=== PATIENT | male | born 1960 | race American Indian/Alaskan Native ===

== ENCOUNTER 2019-08-29 04:07 | Emergency (ER) | payer SELFPAY ==
[2019-08-29 04:17] VITALS: BP 146/90
[2019-08-29] MEDS ORDERED: dexAMETHasone 20 MG/5 ML VIAL IM ONE (04:41)
[2019-08-29] MEDS ORDERED: KETOROLAC 30 MG/1 ML INJ IM ONE (04:41)
--- NOTE | 2019-08-29 04:49 | Emergency Department Report ---
ED Back Pain/Injury HPI - General Chief Complaint: Back Pain/Injury Stated Complaint: BACK PAIN Time Seen by Provider: 08/29/19 04:37 Source: patient, EMS Limitations: No Limitations - History of Present Illness Initial Comments: Mr Richardson is s 58 y/o male with hx of HIV, and hypertension who presents for low back pain radiating to right leg times yesterday. Patient states he bent over yesterday after work and started to get back pain now is radiating to his low back at 7/10. He denies dysuria no frequency. No weakness no numbness no loss or decrease in bowel or bladder function. Patient drove self to ED tonight and is amatory with steady gait. MD Complaint: back injury Onset/Timin -: days(s) Similar Symptoms Previously: Yes Place: work Radiation: right leg Severity: moderate Severity scale (0 -10): 7 Quality: burning, aching Consistency: constant Improves With: none Worsens With: movement, sitting upright, walking Context: while lifting, turning/twisting Associated Symptoms: denies: weakness, chest pain, numbness, difficulty walking, difficulty urinating, incontinence, fever/chills - Related Data Home Medications Medication Instructions Recorded Confirmed Last Taken Efavirenz/Emtricit/Tenofovr Df 1 each PO QDAY 04/14/15 04/14/15 Unknown [Atripla Tablet] Lisinopril/Hydrochlorothiazide 1 each PO DAILY 04/14/15 04/14/15 Unknown [Zestoretic 20-12.5 mg] Previous Rx's Medication Instructions Recorded Last Taken Type Clindamycin [Clindamycin CAP] 450 mg PO TID #10 day 04/20/15 Unknown Rx metFORMIN [Glucophage] 500 mg PO BIDDIAB tablet 04/20/15 Unknown Rx oxyCODONE /ACETAMINOPHEN [Percocet 1 tab PO Q6H PRN #30 tablet 04/20/15 Unknown Rx 5/325 mg] Diclofenac 1% [Diclofenac 1% 1 applicatio TP QID PRN #1 tube 08/29/19 Unknown Rx topical gel] predniSONE [Deltasone] 40 mg PO QDAY 5 Days #10 tab 08/29/19 Unknown Rx traMADoL [Ultram] 50 mg PO Q6HR PRN #12 tablet 08/29/19 Unknown Rx Allergies Allergy/AdvReac Type Severity Reaction Status Date / Time No Known Allergies Allergy Verified 04/14/15 08:47 ED Review of Systems ROS: Stated complaint: BACK PAIN Other details as noted in HPI Constitutional: denies: chills, fever Eyes: denies: eye pain, eye discharge, vision change ENT: denies: ear pain, throat pain Respiratory: denies: cough, shortness of breath, wheezing Cardiovascular: denies: chest pain, palpitations Endocrine: no symptoms reported Gastrointestinal: denies: abdominal pain, nausea, vomiting, diarrhea Genitourinary: denies: urgency, dysuria, frequency, hematuria Musculoskeletal: back pain, arthralgia, myalgia Skin: denies: rash, lesions Neurological: denies: headache, weakness, numbness, paresthesias, vertigo Psychiatric: denies: anxiety, depression Hematological/Lymphatic: denies: easy bleeding, easy bruising ED Past Medical Hx - Past Medical History Previous Medical History?: Yes Hx Hypertension: Yes Hx Asthma: No Hx HIV: Yes - Surgical History Past Surgical History?: Yes Additional Surgical History: LLE - Social History Smoking Status: Former Smoker Substance Use Type: None - Medications Home Medications: Home Medications Medication Instructions Recorded Confirmed Last Taken Type Efavirenz/Emtricit/Tenofovr Df 1 each PO QDAY 04/14/15 04/14/15 Unknown History [Atripla Tablet] Lisinopril/Hydrochlorothiazide 1 each PO DAILY 04/14/15 04/14/15 Unknown History [Zestoretic 20-12.5 mg] Clindamycin [Clindamycin CAP] 450 mg PO TID #10 day 04/20/15 Unknown Rx metFORMIN [Glucophage] 500 mg PO BIDDIAB tablet 04/20/15 Unknown Rx oxyCODONE /ACETAMINOPHEN [Percocet 1 tab PO Q6H PRN #30 tablet 04/20/15 Unknown Rx 5/325 mg] Diclofenac 1% [Diclofenac 1% 1 applicatio TP QID PRN #1 tube 08/29/19 Unknown Rx topical gel] predniSONE [Deltasone] 40 mg PO QDAY 5 Days #10 tab 08/29/19 Unknown Rx traMADoL [Ultram] 50 mg PO Q6HR PRN #12 tablet 08/29/19 Unknown Rx ED Physical Exam - General Limitations: No Limitations General appearance: alert, in no apparent distress - Head Head exam: Present: atraumatic, normocephalic - Eye Eye exam: Present: normal appearance, PERRL, EOMI Pupils: Present: normal accommodation - ENT ENT exam: Present: mucous membranes moist - Neck Neck exam: Present: normal inspection, full ROM. Absent: tenderness, meningismus - Respiratory Respiratory exam: Present: normal lung sounds bilaterally. Absent: respiratory distress, wheezes, stridor, chest wall tenderness - Cardiovascular Cardiovascular Exam: Present: regular rate, normal rhythm, normal heart sounds. Absent: systolic murmur, diastolic murmur, rubs, gallop - GI/Abdominal GI/Abdominal exam: Present: soft, normal bowel sounds. Absent: tenderness, bruit, hernia - Rectal Rectal exam: Present: deferred - Extremities Exam Extremities exam: Present: normal inspection, full ROM. Absent: tenderness, pedal edema - Back Exam Back exam: Present: tenderness (no posterior vertebral point tenderness, mild paraspinus muscle tenderness to deep palpation. no weakness no numbness ), muscle spasm, paraspinal tenderness. Absent: CVA tenderness (R), CVA tenderness (L), vertebral tenderness - Expanded Back Exam Expanded Back exam: Absent: saddle anesthesia Back exam: Positive Straight Leg Raise: Left, Right - Neurological Exam Neurological exam: Present: alert, oriented X3, CN II-XII intact, normal gait, reflexes normal. Absent: motor sensory deficit - Expanded Neurological Exam Expanded Patient oriented to: Present: person, place, time Speech: Present: fluid speech Motor strength exam: RUE: 5, LUE: 5, RLE: 5, LLE: 5 Best Eye Response (Jason): (4) open spontaneously Best Motor Response (Jason): (6) obeys commands Best Verbal Response ([place]): (5) oriented Jason Total: 15 - Psychiatric Psychiatric exam: Present: normal affect, normal mood - Skin Skin exam: Present: warm, dry, intact, normal color. Absent: rash ED Course Vital Signs 08/29/19 08/29/19 04:16 05:12 Temperature 98.3 F Pulse Rate 90 Respiratory 18 18 Rate Blood Pressure 146/90 O2 Sat by Pulse 96 Oximetry ED Medical Decision Making - Medical Decision Making Patient advises pain is relieved to 0/10 at this time. He declines UA at this time. Will DC to home with prescription for Ultram as needed prednisone short burst x3 days patient will follow-up with PCP in 2 to 3 days as scheduled patient verbalizes agreement and understanding with discharge plan DC to home in stable condition at this time Critical care attestation.: If time is entered above; I have spent that time in minutes in the direct care of this critically ill patient, excluding procedure time. ED Disposition Clinical Impression: Lumbar spine strain Qualifiers: Encounter type: initial encounter Qualified Code(s): S39.012A - Strain of muscle, fascia and tendon of lower back, initial encounter Disposition: DC-01 TO HOME OR SELFCARE Is pt being admited?: No Does the pt Need Aspirin: No Condition: Stable Instructions: Low Back Strain (ED), Core Strengthening Exercises (GEN) Prescriptions: predniSONE [Deltasone] 40 mg PO QDAY 5 Days #10 tab Diclofenac 1% [Diclofenac 1% topical gel] 1 applicatio TP QID PRN #1 tube PRN Reason: pain traMADoL [Ultram] 50 mg PO Q6HR PRN #12 tablet PRN Reason: Pain Referrals: MIAH ARDON MD [Staff Physician] - 3-5 Days Forms: Work/School Release Form(ED) Time of Disposition: 05:52
== END 2019-08-29 06:09 | disposition home or self-care (01) ==
LOC: ED 04:07
DX: S39.012A Strain of muscle, fascia and tendon of lower back, initial encounter (principal); I10 Essential (primary) hypertension; Z21 Asymptomatic human immunodeficiency virus [HIV] infection status; Z87.891 Personal history of nicotine dependence; Z79.899 Other long term (current) drug therapy; X58.XXXA Exposure to other specified factors, initial encounter; Y93.89 Activity, other specified; Y92.89 Other specified places as the place of occurrence of the external cause; Y99.8 Other external cause status
CPT/HCPCS: 96372; 99283; J1100; J1885